=== PATIENT | female | born 1955 | race Caucasian/White ===

== ENCOUNTER 2018-02-01 12:39 | Day surgery (SDC) | payer BC ==
--- NOTE | 2018-02-01 07:28 | History and Physical - Ferro ---
CHIEF COMPLAINT/HISTORY OF CHIEF COMPLAINT: This patient presents with a history of an intractable cervical, thoracic and lumbar radiculopathy. Treatment history is extensive. Physical therapy, biomechanical treatments, and pain clinic treatments failed. A surgical evaluation suggested there was no surgery. Primary pain pattern appears to be neck, shoulder and arms although the low back and leg is also a primary or a close secondary component. PAST MEDICAL HISTORY: Chronic obstructive pulmonary disease, peripheral neuropathy, and sleep apnea. PAST SURGICAL HISTORY: section, bladder surgery and hysterectomy. EMPLOYMENT STATUS: Disabled. MEDICATIONS ON ADMISSION: List to be provided. ALLERGIES: ADHESIVES. FAMILY/PSYCHOSOCIAL HISTORY: Social history - Caffeine. Family history - Diabetes, coronary artery disease and hypertension. SYSTEMS REVIEW: The patient seems appropriate in no acute distress. The remainder of the systems review is positive for O2 dependence, chronic obstructive pulmonary disease, glasses, depression, and difficulty sleeping. PHYSICAL EXAMINATION: Height is 5'3", weight is 116. No vital signs. HEENT: Within normal limits. LUNGS: Clear. HEART: Regular rate and rhythm. ABDOMEN: Nontender. MUSCULOSKELETAL: Examination of the musculoskeletal system shows the primary area of pain and tenderness to be cervical with an extension into the upper extremities. The upper extremity functionality shows sensory loss as well as weakness bilaterally. Hand grasp and electrotype caster strength is reduced. NEUROLOGIC: Cranial nerves are intact. IMPRESSION: CERVICAL RADICULOPATHY, ICD-10 CODE M54.12. PLAN: The patient is here for an implanted spinal catheter infusion trial of Hydromorphone to determine if the implantation of a permanent system can be of any value in pain control. The potential risks, side effects, and complications have been reviewed including spinal cord injury, nerve root injury , paralysis, dural puncture, and spinal headache. The procedure will be considered outpatient although an overnight stay will be evaluated. The full discussion of the surgical placement of a catheter, intrinsic or inherent risk of spinal headache, blood patch being performed requiring flat for four, slowly elevated for one have all been carefully reviewed and discussed. Information through the programming director provided. Direct contact and questions with the clinical specialist from [employer] also provided. All questions were answered. JOB NUMBER: [id number] [facility]
[~2018-02-01 12:39] MED LIST: ACETAMINOPHEN 1,000 MG/100 ML BTL IV ONE; CEFAZOLIN 2 Gram 2 GM/50 ML BAG IVPB ONE; FAMOTIDINE 20MG TABLET PO ONE; HYDROMORPHONE PF 2MG/ML AMP 0.008 MG in 0.9 % SODIUM CHLORIDE 10ML VIA 0.996 ML IV ONE; HYDROMORPHONE PF 2MG/ML AMP 8 MG in 0.9 % SODIUM CHLORIDE 500ML 496 ML IV ONE; MECLIZINE 25 MG TABLET PO ONE; METOCLOPRAMIDE 10 MG TABLET PO ONE
[2018-02-01] MEDS ORDERED: MIDAZOLAM HCL 2MG/2ML VIAL IV ONE (12:40)
[2018-02-01] MEDS ORDERED: CEFAZOLIN 1G VIAL IM ONE (12:40)
[2018-02-01] MEDS ORDERED: LIDOCAINE 1% W/EPI 1:200,000 MPF 30ML SQ ONE (12:40)
[2018-02-01] MEDS ORDERED: LIDOCAINE 2% MDV (20MG/ML) 20ML VIAL IV ONE (12:40)
[2018-02-01] MEDS ORDERED: FENTANYL PF 100MCG/2ML VIAL IV ONE (12:40)
[2018-02-01] MEDS ORDERED: PROPOFOL 10 MG/ML VIAL IV ONE (12:40)
[2018-02-01] MEDS ORDERED: BUPIVACAINE 0.5% W/EPI MPF 30 ML VIAL IVP ONE (12:40)
[2018-02-01 14:20] LABS: BLOOD UREA NITROGEN 17 mg/dL (8-23); CREATININE 0.8 mg/dL (0.5-0.9); EST GLOMERULAR FILTRATION RATE > 60 mL/min; GLUCOSE,RANDOM 89 mg/dL (74-109)
[2018-02-01] MEDS ORDERED: HYDROCODONE/APAP 7.5/325MG TABLET PO PRN ×2 (15:21)
[2018-02-01] MEDS ORDERED: METOCLOPRAMIDE 10 MG TABLET PO PRN (15:21)
[2018-02-01] MEDS ORDERED: OXYCODONE/APAP 10MG-325MG TABLET PO PRN ×2 (15:21)
[2018-02-01] MEDS ORDERED: METOCLOPRAMIDE HCL 10 MG/2 ML VIAL IVP PRN (15:21)
[2018-02-01] MEDS ORDERED: DIPHENHYDRAMINE HCL 50 MG/ML VIAL IVP PRN ×2 (15:21)
[2018-02-01] MEDS ORDERED: TEMAZEPAM 15 MG CAPSULE PO PRN ×2 (15:21)
[2018-02-01] MEDS ORDERED: AL HYDROX/MAG HYDROX 30ML UD PO PRN (15:21)
[2018-02-01] MEDS ORDERED: ACETAMINOPHEN 325 MG TAB PO PRN ×2 (15:21)
[2018-02-01] MEDS ORDERED: SENNOSIDES/DOCUSATE SODIUM UD CAPSULE PO PRN ×2 (15:21)
[2018-02-01] MEDS ORDERED: HYDROMORPHONE HCL 2 MG/ML VIAL IM PRN ×2 (15:21)
[2018-02-01] MEDS ORDERED: NALOXONE 0.4 MG/1 ML VIAL IVP PRN (15:21)
[2018-02-01] MEDS ORDERED: DIPHENHYDRAMINE HCL 25 MG CAPSULE PO PRN ×2 (15:21)
[2018-02-01] MEDS ORDERED: ALBUTEROL HFA 8 GM INHALER INH PRN (15:32)
[2018-02-01] MEDS: RINGERS SOLUTION,LACTATED 1,000 ML IV SCH (15:45)
[2018-02-01] MEDS: GABAPENTIN 300 MG CAPSULE PO SCH ×2 (17:15→21:28)
[2018-02-01] MEDS: CEFAZOLIN 1 Gram 1 GM/50 ML BAG IVPB SCH ×2 (21:28→22:00)
[2018-02-01] MEDS ORDERED: DILTIAZEM HCL 120 MG ER CAPSULE PO SCH (22:00)
[2018-02-01] MEDS ORDERED: CLONAZEPAM 1MG TABLET PO SCH (22:00)
[2018-02-01] MEDS ORDERED: SIMVASTATIN 10MG TABLET PO SCH (22:00)
[2018-02-01] MEDS ORDERED: LACTULOSE 20 GM/30 ML UDC PO SCH (22:00)
[2018-02-01] MEDS ORDERED: BACLOFEN 10 MG TABLET PO SCH (22:00)
[2018-02-01] MEDS ORDERED: TRAZODONE 50 MG TABLET PO SCH (22:00)
[2018-02-02] MEDS: RINGERS SOLUTION,LACTATED 1,000 ML IV SCH
[2018-02-02] MEDS: CEFAZOLIN 1 Gram 1 GM/50 ML BAG IVPB SCH ×2 (06:00→06:30)
[2018-02-02] MEDS ORDERED: HYDROXYCHLOROQUINE SULFATE 200 MG TABLET PO SCH (10:00)
[2018-02-02] MEDS ORDERED: BREO (FLUTICASONE/VILANTEROL) 200MCG/25MCG INHALER INH SCH (10:00)
[2018-02-02] MEDS ORDERED: ESCITALOPRAM 10 MG TABLET PO SCH (10:00)
[2018-02-02] MEDS ORDERED: LOSARTAN POTASSIUM 100 MG TABLET PO SCH (10:00)
[2018-02-02] MEDS ORDERED: UMECLIDINIUM BROMIDE (INCRUSE) 62.5MCG IH SCH (10:00)
[2018-02-02] MEDS ORDERED: HYDROCHLOROTHIAZIDE 25 MG TABLET PO SCH (10:00)
--- NOTE | 2018-02-03 17:33 | Operative Note ---
DATE OF SURGERY: 02/01/18 PREOPERATIVE DIAGNOSIS: CERVICAL RADICULOPATHY, ICD-10 CODE = M54.12. OPERATION: 1. FLUOROSCOPICALLY-GUIDED SPINAL ACCESS AT L2-3, PLACEMENT OF THIN-WALLED SPINAL CATHETER T2-3. 2. DIAGNOSTIC MYELOGRAPHY WITH RADIOLOGIC SUPERVISION AND INTERPRETATION. 3. SPINAL OPIOID BOLUS HYDROMORPHONE 0.004 MG SPINAL SPACE. 4. INCISION, SUBCUTANEOUS DISSECTION, AND CREATING OF A SUBCUTANEOUS POUCH FOR CATHETER. ANCHORING OF CATHETER TO SUPRASPINOUS FASCIA WITH ANCHORING DEVICE AND NONABSORBABLE SUTURE AFTER NEEDLE REMOVED. 5. INCISION, SUBCUTANEOUS DISSECTION, AND CREATION OF A SUBCUTANEOUS POUCH AT LEFT POSTERIOR GLUTEAL MARGIN FOR PLACEMENT OF PUMP, IF SUCCESSFUL TRIAL. 6. TUNNELING BETWEEN MIDLINE SPINAL CATHETER POUCH TO POSTERIOR POUCH. TUNNELING CATHETER INTO POUCH. RESECT AND INTERFACE CATHETER WITH SECOND CATHETER COMPONENT BY WAY OF CONNECTOR. TUNNELING CATHETER COMPONENT 6 CM SUPERIOR EXITING SKIN. 7. INTERFACE EXTERNAL CATHETER TO EXTERNAL PUMP SET TO DELIVER HYDROMORPHONE AT 0.08 MG A DAY. 8. CLOSURE OF MIDLINE INCISION, STRATAFIX SUTURE 2-0 FASCIA AND 3-0 SKIN. CLOSURE OF LEFT POSTERIOR POUCH, RUNNING NYLON. 9. EPIDURAL BLOOD PATCH AT L3-4, 20 ML AUTOLOGOUS BLOOD STERILE TECHNIQUE, LEFT ANTECUBITAL. SURGEON: ARVIND ONEAL D.O. ANESTHESIA: LOCAL SEDATION. ANESTHESIA PROVIDER: NAHUN ESCALANTE CRNA. INDICATION: This patient presents with a history of an intractable cervical radiculopathy. A surgical evaluation with Neurosurgery at [facility] suggested no surgery and by way of Dr. Jarrett, referred to this facility for a pump implant. She is here for an implanted spinal catheter infusion trial with Hydromorphone to determine if the implantation of a permanent pump can be of any value in pain control. PROCEDURE: Intravenous line, vital sign monitoring, IV sedation, prepped and draped in sterile technique. Under imaging, the spinal interspace at 2-3 was marked, infiltrated. A 20-gauge spinal needle beveled with a long axis, paramedian approach using AP and lateral imaging for placement. Needle was walked into the spinal space. On the lateral view with CSF flow, a thin-walled spinal catheter was advanced under imaging positioned by intent to C7 to T1. Because of the rotational scoliosis mid spine, the catheter continued to move laterally and could only be positioned midline as high as T2-3. CSF flow still noted through the catheter. Diagnostic myelography was performed; the resulting flow characteristics were smooth and linear in the space. Appropriate flow characteristics identifying the catheter in the spinal space. There was no pain , reaction, or response on the part of the patient. The catheter was clamped to stop CSF leak. The skin above and below the needle infiltrated, incision made, and subcutaneous dissection was conducted to the deep supraspinous fascia. The needle was removed and a pursestring suture was placed to limit CSF loss around the needle as the needle was removed. Catheter was clamped, again CSF noted. At the left posterior gluteal margin; ultimately a site for the pump picked by the patient, skin infiltrated, incision made, and subcutaneous dissection was conducted to form a small pouch. A tunneling tool was then used to carry the spinal catheter into the posterior pouch and then the spinal catheter was interfaced with a second catheter component with a connector. This second catheter component was then tunneled 6 cm superior exiting the skin. This external catheter was then interfaced with an external pump, which was set to deliver Hydromorphone at 0.08 mg a day. The midline incision was closed using STRATAFIX suture, 2-0 fascia and 3-0 skin. The left posterior pouch was closed with a running nylon suture. At L3-4, which is one level below the dural puncture, skin infiltrated and a 17-gauge six-inch Tuohy needle with loss-of- resistance into the epidural space. Simultaneously, 20 mL autologous blood sterile technique from the left antecubital. Blood placed onto the field then an epidural blood patch was performed at this level with this blood. Sterile dressing was applied covering the catheter and all connections and the incisions with sterile dressing. She was transported to the Recovery Room stable , flat, pillow under head and knees. She had appropriate responses. She had full functionality of the extremities and was showing no unusual pain or side- effects. She will be kept flat for four hours on the Surgical Floor, monitored, kept overnight, and discharged in the morning. She will stay flat for four and slowly elevated for one and then be kept still and monitored for side-effects. All other instructions provided, numbers to contact with problems given. She will be discharged in the morning. Potential side-effects from spinal opioids; respiratory depression, nausea, vomiting, constipation, urinary retention, lightheadedness, or rash have all been discussed and reviewed. . cc: Dr. Dayanna Jarrett - Neurosurgery at [facility] JOB NUMBER: [id number] MTDGillian
--- NOTE | 2018-02-05 13:52 | RADIOLOGY REPORT ---
EXAM: SPINE, 1 VIEW HISTORY: POST PAIN PUMP TRIAL. TECHNIQUE: Single AP view of the thoracic spine. COMPARISON: None. FINDINGS: There is some catheter and faint wire-like density seen overlying the left upper quadrant of the abdomen with the wire density approaching the lumbar spine at the approximate L2-3 level. The wire then is seen to ascend up into the thoracic spine. It is difficult to follow in its entire course through the thoracic level due to its faint density and overlying spinal bony density, but there is a tiny metallic dot-like density along the left side of the thoracic spine at the level of the T3 vertebra, presumably representing the opacified tip of the pain pump catheter. Correlation with the procedure itself suggested. There is a thoracolumbar curve convex to the left with hypertrophic spurring in the spine. Some mild diffuse interstitial prominence in the lungs is nonspecific and could be further assessed with an upright PA and lateral chest, if clinically warranted. IMPRESSION: PAIN PUMP IN PLACE WITH THE TIP APPEARING TO OVERLIE THE LEFT SIDE OF THE T3 VERTEBRA, DESCRIBED ABOVE. JOB NUMBER: [id number] [facility]
== END 2018-02-02 09:09 | disposition home or self-care (01) ==
LOC: SUR 12:39 → MEDSURG 15:33 → SUR 02-02 09:09
PROVIDERS: ATTEND Pain Medicine Interventional Pain Medicine
DX: M54.12 Radiculopathy, cervical region (principal); I10 Essential (primary) hypertension; E78.00 Pure hypercholesterolemia, unspecified; I25.10 Atherosclerotic heart disease of native coronary artery without angina pectoris; J44.9 Chronic obstructive pulmonary disease, unspecified; G47.33 Obstructive sleep apnea (adult) (pediatric); Z98.61 Coronary angioplasty status; Z68.42 Body mass index [BMI] 45.0-49.9, adult
CPT/HCPCS: 62362; 62350; 01936; 80048; 85002; 94761; 72020; Q9967; J3490; J3010; J0690 ×3; J1170; J7040; J7120

== ENCOUNTER 2018-02-22 09:51 | Day surgery (SDC) | payer BC ==
--- NOTE | 2018-02-22 07:14 | History and Physical - Ferro ---
CHIEF COMPLAINT/HISTORY OF CHIEF COMPLAINT: This patient with an ongoing implanted catheter infusion trial currently with Fentanyl and Bupivacaine has 75 +% pain control. Due to the failure of all therapies and the success of the trial she presents today for implantation of a permanent system. PAST MEDICAL HISTORY: Unchanged. PAST SURGICAL HISTORY: Unchanged. MEDICATIONS ON ADMISSION: List to be provided. ALLERGIES: ADHESIVES. FAMILY/PSYCHOSOCIAL HISTORY: Family history - Unchanged. Social history - Unchanged. SYSTEMS REVIEW: The patient is appropriate in no acute distress. The remainder of the systems review is positive for glasses, headaches, depression, and difficulty sleeping. PHYSICAL EXAMINATION: Height is 53", weight is 160. No vital signs. Evaluation shows the dressings for implanted catheter trial to be intact. The external lines to the infusion device are intact and running. All other findings are consistent with her previous evaluation. IMPRESSION: 1. INTRACTABLE CERVICAL RADICULOPATHY, ICD-10 CODE M54.12. 2. IMPLANTED CATHETER INFUSION TRIAL USING FENTANYL AND BUPIVACAINE. PLAN: Due to the failure of all therapies and the success of the extending trial after the Dilaudid was discontinued and Fentanyl and Bupivacaine was started she has done quite well. She is here for full implantation. The procedure will be considered outpatient and an overnight stay may be evaluated. JOB NUMBER: [id number] MTDD
[~2018-02-22 09:51] MED LIST changes: +BUPIVACAINE HCL IV ONE; +FENTANYL CITRATE IV ONE; +FENTANYL PF 100MCG/2ML VIAL IVP ONE; -HYDROMORPHONE PF 2MG/ML AMP 0.008 MG in 0.9 % SODIUM CHLORIDE 10ML VIA 0.996 ML IV ONE; -HYDROMORPHONE PF 2MG/ML AMP 8 MG in 0.9 % SODIUM CHLORIDE 500ML 496 ML IV ONE; +[UNRECOGNIZED DRUG - OTHER] IV ONE
[2018-02-22] MEDS ORDERED: HYDROMORPHONE HCL 2 MG/ML VIAL IV ONE (09:52)
[2018-02-22] MEDS ORDERED: MIDAZOLAM HCL 2MG/2ML VIAL IV ONE (09:52)
[2018-02-22] MEDS ORDERED: PROPOFOL 10 MG/ML VIAL IV ONE (09:52)
[2018-02-22] MEDS ORDERED: CEFAZOLIN 1G VIAL IM ONE (09:52)
[2018-02-22] MEDS ORDERED: LIDOCAINE 1% W/EPI 1:200,000 MPF 30ML SQ ONE (09:52)
[2018-02-22] MEDS ORDERED: BUPIVACAINE 0.5% W/EPI MPF 30 ML VIAL IVP ONE (09:52)
[2018-02-22] MEDS ORDERED: LIDOCAINE 2% MDV (20MG/ML) 20ML VIAL IV ONE (09:52)
[2018-02-22] MEDS ORDERED: FENTANYL PF 100MCG/2ML VIAL IV ONE (09:52)
--- NOTE | 2018-02-25 06:15 | Operative Note ---
DATE OF SURGERY: 02/22/18 PREOPERATIVE DIAGNOSES: 1. INTRACTABLE CERVICAL RADICULOPATHY, ICD-10 CODE = M54.12. 2. IMPLANTED SPINAL CATHETER INFUSION TRIAL FENTANYL AND BUPIVACAINE. OPERATION: 1. FLUOROSCOPICALLY-GUIDED INCISION, SUBCUTANEOUS DISSECTION, AND CREATION OF SUBCUTANEOUS POUCH AT LEFT POSTERIOR GLUTEAL MARGIN FOR PLACEMENT FO PUMP IDENTIFIED A MEDTRONIC 40 MG PROGRAMMABLE. 2. REVISION INTERNAL SPINAL CATHETER, REMOVAL EXTERNAL CATHETER, REVISION AND INTERSECTION INDWELLING CATHETER WITH SECOND CATHETER COMPONENT BY WAY OF CONNECTOR. 3. PLACEMENT OF PUMP, 40 ML PROGRAMMABLE MEDTRONIC ONTO STERILE FIELD, PRE- FILLED FENTANYL/BUPIVACAINE, INTERFACED TO REVISED CATHETER. 4. PLACEMENT OF PUMP/CATHETER COMBINATION INTO POUCH, LEFT POSTERIOR GLUTEAL MARGIN SECURING TO POSTERIOR FASCIA WITH NONABSORBABLE SUTURE THREE POINT PUMP EYELETS. 5. PLACEMENT OF CURVED 24-GAUGE MAYFIELD NEEDLE TO ACCESS PORT PROGRAMMABLE PUMP. ASPIRATION CLEARING CATHETER OF OPIOID AND CSF MIXTURE. 6. DIAGNOSTIC MYELOGRAPHY WITH RADIOLOGIC SUPERVISION INTERPRETATION THROUGH ACCESS PORT CONFIRMING FUNCTIONALITY OF CATHETER/PUMP COMBINATION. 7. CLOSURE OF INCISION USING STRATAFIX SUTURE 2-0 FASCIA, 3-0 SKIN. DERMABOND CLOSURE. 8. PROGRAMMING OF PUMP TO DELIVER BY CONTINUOUS INFUSION FENTANYL/BUPIVACAINE, FENTANYL 200 MCG PER DAY. SURGEON: ARVIND ONEAL D.O. ANESTHESIA: LOCAL SEDATION. ANESTHESIA PROVIDER: NAHUN ESCALANTE CRNA INDICATION: This patient presents with a history of intractable cervical radiculopathy. Due to the failure of therapy, an implanted spinal infusion trial for cervical pain control with Dilaudid was initiated. Side-effects resulted in the removal of Dilaudid and replaced with Fentanyl/Bupivacaine with 60-75% pain control. Due to the failure of therapy and the success of the trial , she presents today for implantation of a permanent system. PROCEDURE: Intravenous line, vital sign monitoring, IV sedation, prepped and draped in sterile technique. Patient position prone. Sterile prep. Sterile technique. The previous pouch at the left posterior gluteal margin, for the interface between indwelling and external catheter, was infiltrated, incision made, and subcutaneous dissection was conducted to form a pouch of suitable size and depth for a pump identified as a Medtronic 40 mL Programmable. The connection between the internal/external catheter was clamped. The external catheter was cut, connector cut and freed from the two catheter components. The external catheter was then removed by pulling away from the incision. The internal catheter was then resected and interfaced with a second catheter component by way of a connector. A pump was placed onto the field filled with Fentanyl/Bupivacaine with a 40 mL volume. The revised catheter was interfaced to the pump. Antibiotic irrigation and Bovie for hemostasis in the pouch. The pump was then placed into the formed pouch and secured to the posterior fascia with nonabsorbable suture three points pump eyelets. With the pump in the pouch , a 24-gauge Mayfield needle was inserted into the access port and 1 mL of catheter content was aspirated clearing the catheter of opioid and CSF mixture. Diagnostic myelography was then performed under radiologic supervision and interpretation. Contrast was seen moving through the pump catheter connection. No leaks, kinks, or bends. The catheter tip at T3 was identified with smooth linear flow of contrast moving into the cervical region. Functionality of the system was then noted and assured. With the pump in the pouch, the incision was closed using STRATAFIX suture, 2-0 fascia and 3-0 subcuticular. A Dermabond closure was then used to approximate the edges of the incision. The pump was then programmed to deliver Fentanyl and Bupivacaine continuous infusion with Fentanyl 200 mcg per day. She was transported to the Recovery Room stable. No side-effects from the procedure or the sedation. When fully awake and alert, she is prepared for discharge. DISCHARGE INSTRUCTIONS: 1. Sites remain clean and dry. No showering or bathing in any way that would disrupt dressings. If it happens, contact the clinic. 2. Standard medications resumed including Levaquin, the antibiotic, 500 mg once a day for another 7 days. 3. The office will contact the patient at home in the next 24-48 hours to set up an appointment in 7-10 days to evaluate the incisions. Until then, she is to keep her activities low. No bend, lift, push, pull. Spinal opioid side-effects: respiratory depression, nausea, vomiting, constipation, urinary retention, lightheadedness, or rash have all been discussed and reviewed. All other instructions provided, numbers to contact with problems. She was then discharged. cc: Dr. Dayanna Pitts JOB NUMBER: [id number] MTDD
== END 2018-02-22 14:25 | disposition home or self-care (01) ==
LOC: SUR 09:51
PROVIDERS: ATTEND Pain Medicine Interventional Pain Medicine
DX: M54.12 Radiculopathy, cervical region (principal); I10 Essential (primary) hypertension; E78.00 Pure hypercholesterolemia, unspecified; I25.10 Atherosclerotic heart disease of native coronary artery without angina pectoris; G47.33 Obstructive sleep apnea (adult) (pediatric)
CPT/HCPCS: 62350; 62362; 01936; 62367; Q9967; J3010; J1170; J0690; C1755